=== PATIENT | female | born 2000 | race Caucasian/White ===

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

== ENCOUNTER 2021-03-15 14:55 | Emergency (ER) | payer OTHER ==
[~2021-03-15 14:55] MED LIST: IBUPROFEN600 MG PO; KEFLEX CAP 500500 MG PO; MELOXICAM15 MG PO
== END 2021-03-15 16:50 | disposition home or self-care (01) ==
LOC: ER1 14:55
DX: R56.9 Unspecified convulsions (principal); F41.9 Anxiety disorder, unspecified; F17.200 Nicotine dependence, unspecified, uncomplicated
CPT/HCPCS: 99283